=== PATIENT | female | born 1975 | race Caucasian/White ===

== ENCOUNTER 2018-09-18 03:31 | Emergency (ER) | payer SELFPAY ==
[~2018-09-18] VITALS: Ht 167.6 cm; Wt 100.2 kg
--- OUTSIDE RECORDS SUMMARY | 2018-09-18 03:39 | XMS REPORT ---
Author Author GOPAL URENA [facility] Address [address] [place] [address] Care Team Providers Care Weaving Inspector Name Role Phone AYANNADOMINGOAN Unavailable PROBLEMS Type Condition ICD9-CM Code [id number] Code Onset Dates Condition Status SNOMED Code Problem Uncontrolled type 2 diabetes mellitus without complication, without long- term current use of insulin E11.65 Active 423457778 Problem Other chronic pain G89.29 Active 29541027 Problem Neuropathy G62.9 Active 644781792 Problem Mood disorder F39 Active 67500164 Problem Hypertension, benign I10 Active 13195633 Problem Controlled type 2 diabetes mellitus without complication, without long- term current use of insulin E11.9 Active 646502794 Problem Mixed hyperlipidemia E78.2 Active 333353484 ALLERGIES No Information ENCOUNTERS Encounter Location Date Diagnosis [place] [address] [place] [id number] [place] [address] Mar, [facility] [id number] [place] [address] Jan, [facility] [id number] [place] [address] Jan, [facility] [id number] [place] [address] Dec, [facility] [id number] [place] [address] Dec, Controlled type 2 diabetes mellitus without complication, without long-term current use of insulin E11.9 ; Foot pain, left M79.672 ; Other chronic pain G89.29 and Pain in right shoulder M25.511 [facility] [id number] [place] [address] 15 Dec, 2017 Foot pain, left M79.672 and Foot pain, right M79.671 [place] [address] [address] [id number] [place] [address] Dec, Foot pain, left M79.672 and Foot pain, right M79.671 [place] [address] [place] [id number] [place] [address] Nov, Hypertension, benign I10 ; Uncontrolled type 2 diabetes mellitus without complication, without long-term current use of insulin E11.65 ; Neuropathy G62.9 ; Tobacco abuse Z72.0 and Tobacco abuse counseling Z71.6 [place] [address] [address] [id number] [place] [address] Oct, Other chronic pain G89.29 ; Pain in left ankle and joints of left foot M25.572 ; Pain in right ankle and joints of right foot M25.571 and Controlled type 2 diabetes mellitus without complication, without long-term current use of insulin E11.9 [place] [address] [address] [id number] [place] [address] Aug, Foot pain, right M79.671 [place] [address] [id number] [place] [address] Aug, Foot pain, right M79.671 ; Controlled type 2 diabetes mellitus without complication, without long-term current use of insulin E11.9 and Neuropathy G62.9 [place] [address] [address] [id number] [place] [address] July, Uncontrolled type 2 diabetes mellitus without complication, without long-term current use of insulin E11.65 and Hypertension, benign I10 [place] [address] [place] [address] July, [place] [address] [place] [id number] [place] [address] May, Uncontrolled type 2 diabetes mellitus without complication, without long-term current use of insulin E11.65 ; Hypertension, benign I10 and Mixed hyperlipidemia E78.2 [place] [address] [place] [address] [id number] [place] [address] 13 Apr, 2017 [facility] [address] [facility] [id number] [address] Apr, Mood disorder F39 ; Uncontrolled type 2 diabetes mellitus without complication, without long-term current use of insulin E11.65 and Hypertension, benign I10 [facility] [address] [facility] [id number] [address] Mar, IMMUNIZATIONS No Known Immunizations SOCIAL HISTORY Never Assessed REASON FOR VISIT PT f/u PLAN OF CARE Activity Details Follow Up 1 Week Reason:F/U PT VITAL SIGNS MEDICATIONS Unknown Medications RESULTS No Results PROCEDURES Procedure Date Ordered Result Body Site THERAPEUTIC EXERCISES Dec 25, 2017 INSTRUCTIONS MEDICATIONS ADMINISTERED No Known Medications MEDICAL (GENERAL) HISTORY Type Description Date Medical History hypertension Medical History type II diabetes Medical History degenerative joint disease Medical History high cholestorol Surgical History bilateral tubal ligation (BTL) 1995 Surgical History Pin and Plates in right ankle 1998 Hospitalization History kidney infection 1989
--- OUTSIDE RECORDS SUMMARY | 2018-09-18 03:39 | XMS REPORT ---
Author Author JAME AGUILAR Organization [facility] Address [address] [place] [address] Care Team Providers Care Grading Clerk Name Role Phone JAME AGUILAR Unavailable PROBLEMS Type Condition ICD9-CM Code [id number] Code Onset Dates Condition Status SNOMED Code Problem Uncontrolled type 2 diabetes mellitus without complication, without long- term current use of insulin E11.65 Active 609368115 Problem Other chronic pain G89.29 Active 52804234 Problem Neuropathy G62.9 Active 937197410 Problem Mood disorder F39 Active 40729248 Problem Hypertension, benign I10 Active 97689483 Problem Controlled type 2 diabetes mellitus without complication, without long- term current use of insulin E11.9 Active 677966525 Problem Mixed hyperlipidemia E78.2 Active 260675684 ALLERGIES Substance Reaction Event Type Date Status Lorcet itching Drug Allergy Dec, Active ENCOUNTERS Encounter Location Date Diagnosis [place] [id number] [place] [id number] [place] [address] Mar, [facility] [id number] [place] [address] Jan, [facility] [address] [place] [address] Jan, [facility] [id number] [place] [address] Jan, [facility] [id number] [place] [address] Dec, Other chronic pain G89.29 and Pain in right shoulder M25.511 [facility] [id number] [place] [address] Dec, Controlled type 2 diabetes mellitus without complication, without long-term current use of insulin E11.9 ; Foot pain, left M79.672 ; Other chronic pain G89.29 and Pain in right shoulder M25.511 [place] [address] [id number] [place] [address] Dec, Foot pain, left M79.672 and Foot pain, right M79.671 [place] [address] [id number] [place] [address] Dec, Foot pain, left M79.672 and Foot pain, right M79.671 [place] [id number] [place] [address] Nov, Hypertension, benign I10 ; Uncontrolled type 2 diabetes mellitus without complication, without long-term current use of insulin E11.65 ; Neuropathy G62.9 ; Tobacco abuse Z72.0 and Tobacco abuse counseling Z71.6 [place] [address] [address] Oct, Other chronic pain G89.29 ; Pain in left ankle and joints of left foot M25.572 ; Pain in right ankle and joints of right foot M25.571 and Controlled type 2 diabetes mellitus without complication, without long-term current use of insulin E11.9 [place] [id number] [place] [address] Aug, Foot pain, right M79.671 [place] [id number] [place] [address] Aug, Foot pain, right M79.671 ; Controlled type 2 diabetes mellitus without complication, without long-term current use of insulin E11.9 and Neuropathy G62.9 [place] [id number] [place] [address] July, Uncontrolled type 2 diabetes mellitus without complication, without long-term current use of insulin E11.65 and Hypertension, benign I10 [place] [id number] [place] [address] July, [place] [address] [place] [address] May, Uncontrolled type 2 diabetes mellitus without complication, without long-term current use of insulin E11.65 ; Hypertension, benign I10 and Mixed hyperlipidemia E78.2 [facility] [address] [facility] [id number] [place] [address] Apr, [facility] [address] [facility] [id number], [place] [address] Apr, Mood disorder F39 ; Uncontrolled type 2 diabetes mellitus without complication, without long-term current use of insulin E11.65 and Hypertension, benign I10 [facility] [address] [facility] [id number], [place] [address] Mar, IMMUNIZATIONS No Known Immunizations SOCIAL HISTORY Never Assessed REASON FOR VISIT Rt Shoulder Injection, xray said no breaks or fx just abnormal. CBrumbackRN PLAN OF CARE Activity Details Future/Pending Procedure JOINT INJECTION-LARGE JOINT VITAL SIGNS Height 66.5 in 2018-01-09 Weight 229.7 lbs 2018-01-09 Temperature 98.0 degrees Fahrenheit 2018-01-09 Heart Rate 115 bpm 2018-01-09 Respiratory Rate 18 2018-01-09 BMI 36.52 kg/m2 2018-01-09 Blood pressure systolic 100 mmHg 2018-01-09 Blood pressure diastolic 72 mmHg 2018-01-09 MEDICATIONS Medication Instructions Dosage Frequency Start Date End Date Duration Status Simvastatin 20 mg Orally Once a day 1 tablet in the evening 24h 30 Active Neurontin 300 MG Orally Three times a day 1 capsule 8h 20 Aug, 2017 30 day(s) Active Aleve 220 MG Orally every 12 hrs 1 tablet with food or milk as needed 12h Not-Taking Metformin HCl 500 mg Orally Twice a day 2 tablets 12h 12 Apr, 2017 30 day(s) Active Lisinopril-Hydrochlorothiazide 20-25 MG Orally Once a day 1 tablet 24h July, 30 day(s) Active Diclofenac Sodium 75 MG Orally Twice a day 1 tablet with food or milk 12h 24 Dec, 2017 Mar, 30 day(s) Active GlipiZIDE 10 mg Orally 2 times a day 2 tablets 12h Oct, 30 day(s) Active Amitriptyline HCl 50 mg Orally Once a day. voucher 1st fill 1 tablet 30 Active Citalopram Hydrobromide 20 mg Orally Once a day, voucher 1st fill 1 tablet 30 Active RESULTS No Results PROCEDURES Procedure Date Ordered Result Body Site DRAIN/INJECT, JOINT/BURSA Jan 09, 2018 INSTRUCTIONS MEDICATIONS ADMINISTERED No Known Medications MEDICAL (GENERAL) HISTORY Type Description Date Medical History hypertension Medical History type II diabetes Medical History degenerative joint disease Medical History high cholestorol Surgical History bilateral tubal ligation (BTL) 1995 Surgical History Pin and Plates in right ankle 1998 Hospitalization History kidney infection 1989
--- OUTSIDE RECORDS SUMMARY | 2018-09-18 03:39 | XMS REPORT ---
Author Author GOPAL URENA [facility] Address [address] [place] [address] Care Team Providers Care Draw String Knotter Name Role Phone AYANNADOMINGOAN Unavailable PROBLEMS Type Condition ICD9-CM Code LWN89-PI Code Onset Dates Condition Status SNOMED Code Problem Uncontrolled type 2 diabetes mellitus without complication, without long- term current use of insulin E11.65 Active 227469998 Problem Other chronic pain G89.29 Active 82420008 Problem Neuropathy G62.9 Active 960860208 Problem Mood disorder F39 Active 14145242 Problem Hypertension, benign I10 Active 48065295 Problem Controlled type 2 diabetes mellitus without complication, without long- term current use of insulin E11.9 Active 911877729 Problem Mixed hyperlipidemia E78.2 Active 403546630 ALLERGIES No Information ENCOUNTERS Encounter Location Date Diagnosis [place] [address] [place] [address] [id number] [place] [address] Mar, [facility] [address] [id number] [place] [address] Jan, [facility] [id number] [place] [address] Jan, [facility] [id number] [place] [address] Dec, [facility] [id number] [place] [address] Dec, Controlled type 2 diabetes mellitus without complication, without long-term current use of insulin E11.9 ; Foot pain, left M79.672 ; Other chronic pain G89.29 and Pain in right shoulder M25.511 [facility] [id number] [place] [address] 15 Dec, 2017 Foot pain, left M79.672 and Foot pain, right M79.671 [place] [id number] [place] [address] Dec, Foot pain, left M79.672 and Foot pain, right M79.671 [place] [id number] [place] [address] Nov, Hypertension, benign I10 ; Uncontrolled type 2 diabetes mellitus without complication, without long-term current use of insulin E11.65 ; Neuropathy G62.9 ; Tobacco abuse Z72.0 and Tobacco abuse counseling Z71.6 [place] [address] [id number] [place] [address] Oct, Other chronic pain G89.29 ; Pain in left ankle and joints of left foot M25.572 ; Pain in right ankle and joints of right foot M25.571 and Controlled type 2 diabetes mellitus without complication, without long-term current use of insulin E11.9 [place] [id number] [place] [address] Aug, Foot pain, right M79.671 [place] [address] [id number] [place] [address] Aug, Foot pain, right M79.671 ; Controlled type 2 diabetes mellitus without complication, without long-term current use of insulin E11.9 and Neuropathy G62.9 [place] [id number] [place] [address] July, Uncontrolled type 2 diabetes mellitus without complication, without long-term current use of insulin E11.65 and Hypertension, benign I10 [place] [address] [place] [address] July, [place] [address] [id number] [place] [address] May, Uncontrolled type 2 diabetes mellitus without complication, without long-term current use of insulin E11.65 ; Hypertension, benign I10 and Mixed hyperlipidemia E78.2 [place] [address] [place] [address] [id number] [address] 13 Apr, 2017 [facility] [address] [facility] [id number], [place] [address] Apr, Mood disorder F39 ; Uncontrolled type 2 diabetes mellitus without complication, without long-term current use of insulin E11.65 and Hypertension, benign I10 [facility] WALK IN [facility] [address] [facility] [id number], [place] [address] Mar, IMMUNIZATIONS No Known Immunizations SOCIAL HISTORY Never Assessed REASON FOR VISIT PT Evaluation PLAN OF CARE Activity Details Follow Up 1 Week Reason:F/U PT VITAL SIGNS MEDICATIONS Unknown Medications RESULTS No Results PROCEDURES Procedure Date Ordered Result Body Site PT EVAL LOW COMPLEX 20 MIN Dec 18, 2017 THERAPEUTIC EXERCISES Dec 18, 2017 INSTRUCTIONS MEDICATIONS ADMINISTERED No Known Medications MEDICAL (GENERAL) HISTORY Type Description Date Medical History hypertension Medical History type II diabetes Medical History degenerative joint disease Medical History high cholestorol Surgical History bilateral tubal ligation (BTL) 1995 Surgical History Pin and Plates in right ankle 1998 Hospitalization History kidney infection 1989
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
--- OUTSIDE RECORDS SUMMARY | 2018-09-18 03:39 | XMS REPORT ---
Author Author JAME AGUILAR Organization [facility] Address [address] [place] [address] Care Team Providers Care Spiral Winder Name Role Phone JAME AGUILAR Unavailable PROBLEMS Type Condition ICD9-CM Code GUP61-CX Code Onset Dates Condition Status SNOMED Code Problem Uncontrolled type 2 diabetes mellitus without complication, without long- term current use of insulin E11.65 Active 039034082 Problem Pain in right shoulder M25.511 Active [id number] Problem Neuropathy G62.9 Active 282688526 Problem Mood disorder F39 Active 90823662 Problem Hypertension, benign I10 Active 98362682 Problem Controlled type 2 diabetes mellitus without complication, without long- term current use of insulin E11.9 Active 505306304 Problem Mixed hyperlipidemia E78.2 Active 568602652 ALLERGIES Substance Reaction Event Type Date Status Lorcet itching Drug Allergy Jan, Active ENCOUNTERS Encounter Location Date Diagnosis [place] [address] [address] Mar, [facility] [address] [place] [id number] [place] [address] Feb, [place] [address] [place] [id number] [place] [address] Jan, Uncontrolled type 2 diabetes mellitus without complication, without long-term current use of insulin E11.65 ; Other chronic pain G89.29 ; Pain in right shoulder M25.511 and Skin fissure R23.4 [place] [address] [address] Jan, Foot pain, left M79.672 and Foot pain, right M79.671 [place] [address] [place] [id number] [place] [address] Jan, [place] [address] [place] [id number] [place] [address] Dec, Other chronic pain G89.29 and Pain in right shoulder M25.511 [place] [address] [place] [id number] [place] [address] Dec, Controlled type 2 diabetes mellitus without complication, without long-term current use of insulin E11.9 ; Foot pain, left M79.672 ; Other chronic pain G89.29 and Pain in right shoulder M25.511 [place] [address] [place] [id number] [place] [address] Dec, Foot pain, left M79.672 and Foot pain, right M79.671 [place] [address] [address] Dec, Foot pain, left M79.672 and Foot pain, right M79.671 [place] [address] [place] [id number] [place] [address] Nov, Hypertension, benign I10 ; Uncontrolled type 2 diabetes mellitus without complication, without long-term current use of insulin E11.65 ; Neuropathy G62.9 ; Tobacco abuse Z72.0 and Tobacco abuse counseling Z71.6 [place] [address] [place] [id number] [place] [address] Oct, Other chronic pain G89.29 ; Pain in left ankle and joints of left foot M25.572 ; Pain in right ankle and joints of right foot M25.571 and Controlled type 2 diabetes mellitus without complication, without long-term current use of insulin E11.9 [place] [address] [place] [id number] [place] [address] Aug, Foot pain, right M79.671 [place] [address] [place] [id number] [place] [address] Aug, Foot pain, right M79.671 ; Controlled type 2 diabetes mellitus without complication, without long-term current use of insulin E11.9 and Neuropathy G62.9 [place] [address], [place] [address] July, Uncontrolled type 2 diabetes mellitus without complication, without long-term current use of insulin E11.65 and Hypertension, benign I10 [facility] [address], [place] [address] July, [facility] [address] [place] [address] [id number] [place] [address] May, Uncontrolled type 2 diabetes mellitus without complication, without long-term current use of insulin E11.65 ; Hypertension, benign I10 and Mixed hyperlipidemia E78.2 [place] [address] [place] [id number] [place] [address] 13 Apr, 2017 [place] [address] [place] [id number] [place] [address] 12 Apr, 2017 Mood disorder F39 ; Uncontrolled type 2 diabetes mellitus without complication, without long-term current use of insulin E11.65 and Hypertension, benign I10 [facility] [address], [place] [address] Mar, IMMUNIZATIONS No Known Immunizations SOCIAL HISTORY Never Assessed REASON FOR VISIT Diabetes- Grady [facility] PLAN OF CARE Activity Details Follow Up 2 Months Reason:dm2 VITAL SIGNS Height 66.5 in 2018-02-07 Weight 226.0 lbs 2018-02-07 Temperature 98.0 degrees Fahrenheit 2018-02-07 Heart Rate 100 bpm 2018-02-07 Respiratory Rate 18 2018-02-07 Oximetry 98 % 2018-02-07 BMI 35.93 kg/m2 2018-02-07 Blood pressure systolic 130 mmHg 2018-02-07 Blood pressure diastolic 72 mmHg 2018-02-07 MEDICATIONS Medication Instructions Dosage Frequency Start Date End Date Duration Status Metformin HCl 500 mg Orally Twice a day 2 tablets 12h 12 Apr, 2017 30 day(s) Active Simvastatin 20 mg Orally Once a day 1 tablet in the evening 24h 30 Active Citalopram Hydrobromide 20 mg Orally Once a day, voucher 1st fill 1 tablet 30 Active Lisinopril-Hydrochlorothiazide 20-25 MG Orally Once a day 1 tablet 24h 30 Active Cyclobenzaprine HCl 10 MG Orally 2 times a day 1 tablet as needed 12h Jan, Active Amitriptyline HCl 50 mg Orally Once a day. voucher 1st fill 1 tablet 30 Active Diclofenac Sodium 75 MG Orally Twice a day 1 tablet with food or milk 12h Dec, Mar, 30 day(s) Active GlipiZIDE 10 mg Orally 2 times a day 2 tablets 12h Oct, 30 day(s) Active Mupirocin Calcium 2 % Externally Twice a day 1 application 12h Jan, 10 day(s) Active Aleve 220 MG Orally every 12 hrs 1 tablet with food or milk as needed 12h Not-Taking Neurontin 300 MG Orally Three times a day 1 capsule 8h 30 Active RESULTS No Results PROCEDURES No Known [...]
--- OUTSIDE RECORDS SUMMARY | 2018-09-18 03:39 | XMS REPORT ---
Author Author GOPAL URENA [facility] Address [address] [place] [address] Care Team Providers Care Factory Laborer Name Role Phone AYANNADOMINGOAN Unavailable PROBLEMS Type Condition ICD9-CM Code PHY26-UA Code Onset Dates Condition Status SNOMED Code Problem Uncontrolled type 2 diabetes mellitus without complication, without long- term current use of insulin E11.65 Active 763675086 Problem Other chronic pain G89.29 Active 36984953 Problem Neuropathy G62.9 Active 945659707 Problem Mood disorder F39 Active 62490734 Problem Hypertension, benign I10 Active 52112544 Problem Controlled type 2 diabetes mellitus without complication, without long- term current use of insulin E11.9 Active 905967761 Problem Mixed hyperlipidemia E78.2 Active 387101999 ALLERGIES No Information ENCOUNTERS Encounter Location Date Diagnosis [place] [address] [address] Mar, [place] [address] [address] Jan, [place] [address] [address] Jan, Foot pain, left M79.672 and Foot pain, right M79.671 [facility] [address] [place] [id number] [place] [address] Jan, [facility] [address] [address] Dec, Other chronic pain G89.29 and Pain in right shoulder M25.511 [place] [address] [place] [id number] [place] [address] Dec, Controlled type 2 diabetes mellitus without complication, without long-term current use of insulin E11.9 ; Foot pain, left M79.672 ; Other chronic pain G89.29 and Pain in right shoulder M25.511 [place] [address] [address] Dec, Foot pain, left M79.672 and Foot pain, right M79.671 [place] [address] [address] Dec, Foot pain, left M79.672 and Foot pain, right M79.671 [place] [address] [address] Nov, Hypertension, benign I10 ; Uncontrolled type 2 diabetes mellitus without complication, without long-term current use of insulin E11.65 ; Neuropathy G62.9 ; Tobacco abuse Z72.0 and Tobacco abuse counseling Z71.6 [place] [address] [address] Oct, Other chronic pain G89.29 ; Pain in left ankle and joints of left foot M25.572 ; Pain in right ankle and joints of right foot M25.571 and Controlled type 2 diabetes mellitus without complication, without long-term current use of insulin E11.9 [place] [address] [address] Aug, Foot pain, right M79.671 [place] [address] [address] Aug, Foot pain, right M79.671 ; Controlled type 2 diabetes mellitus without complication, without long-term current use of insulin E11.9 and Neuropathy G62.9 [place] [address] [address] July, Uncontrolled type 2 diabetes mellitus without complication, without long-term current use of insulin E11.65 and Hypertension, benign I10 [place] [address] [address] July, [place] [address] [facility] [id number] [place] [address] May, Uncontrolled type 2 diabetes mellitus without complication, without long-term current use of insulin E11.65 ; Hypertension, benign I10 and Mixed hyperlipidemia E78.2 [facility] [address] [facility] [id number] [place] [address] Apr, [facility] [address] [facility] [id number], [place] [address] Apr, Mood disorder F39 ; Uncontrolled type 2 diabetes mellitus without complication, without long-term current use of insulin E11.65 and Hypertension, benign I10 [facility] [address] [facility] [id number], [place] [address] Mar, IMMUNIZATIONS No Known Immunizations SOCIAL HISTORY Never Assessed REASON FOR VISIT PLAN OF CARE Activity Details Follow Up 1 Week Reason:F/U PT VITAL SIGNS MEDICATIONS Unknown Medications RESULTS No Results PROCEDURES Procedure Date Ordered Result Body Site THERAPEUTIC EXERCISES Jan 22, 2018 INSTRUCTIONS MEDICATIONS ADMINISTERED No Known Medications MEDICAL (GENERAL) HISTORY Type Description Date Medical History hypertension Medical History type II diabetes Medical History degenerative joint disease Medical History high cholestorol Surgical History bilateral tubal ligation (BTL) 1995 Surgical History Pin and Plates in right ankle 1998 Hospitalization History kidney infection 1989
--- OUTSIDE RECORDS SUMMARY | 2018-09-18 03:39 | XMS REPORT ---
Author Author GOPAL URENA Organization [facility] Address [address] [place] [address] Care Team Providers Care Crew Leader Gluing Name Role Phone AYANNADOMINGOAN Unavailable PROBLEMS Type Condition ICD9-CM Code HRM48-BR Code Onset Dates Condition Status SNOMED Code Problem Uncontrolled type 2 diabetes mellitus without complication, without long- term current use of insulin E11.65 Active 698309226 Problem Hypertension, benign I10 Active 59028267 Problem Pain in right shoulder M25.511 Active 43891603790832836 Problem Other chronic pain G89.29 Active 47593151 Problem Mood disorder F39 Active 21485528 Problem Mixed hyperlipidemia E78.2 Active 861519048 Problem Controlled type 2 diabetes mellitus without complication, without long- term current use of insulin E11.9 Active 705352171 Problem Neuropathy G62.9 Active 142971207 ALLERGIES No Information ENCOUNTERS Encounter Location Date Diagnosis [facility] [address] [address] May, Chronic diarrhea K52.9 [facility] [address] [address] 08 May, 2018 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 [facility] [address] [address] 2018 Low back pain M54.5 ; Other chronic pain G89.29 ; Chronic diarrhea K52.9 ; Hypertension, benign I10 ; Mood disorder F39 ; Uncontrolled type 2 diabetes mellitus without complication, without long-term current use of insulin E11.65 and Mixed hyperlipidemia E78.2 [facility] [address] [place] [id number] [place] [address] Mar, Pain in right shoulder M25.511 [facility] [address] [address] Mar, Foot pain, left M79.672 and Foot pain, right M79.671 [place] [address] [address] Mar, 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 and Posterior tibial tendinitis of right lower extremity M76.821 [place] [address] [address] Mar, [place] [address] [address] Feb, Foot pain, left M79.672 and Foot pain, right M79.671 [place] [address] [place] [id number] [place] [address] Jan, Uncontrolled type 2 diabetes mellitus without complication, without long-term current use of insulin E11.65 ; Other chronic pain G89.29 ; Pain in right shoulder M25.511 and Skin fissure R23.4 [place] [address] [place] [id number] [place] [address] Jan, Foot pain, left M79.672 and Foot pain, right M79.671 [place] [address] [place] [id number] [place] [address] Jan, Foot pain, left M79.672 and Foot pain, right M79.671 [place] [address] [place] [id number] [place] [address] Dec, Other chronic pain G89.29 and Pain in right shoulder M25.511 [place] [address] [address] Dec, Controlled type 2 diabetes mellitus without complication, without long-term current use of insulin E11.9 ; Foot pain, left M79.672 ; Other chronic pain G89.29 and Pain in right shoulder M25.511 [place] [address] [address] Dec, Foot pain, left M79.672 and Foot pain, right M79.671 [place] [address] [address] Dec, Foot pain, left M79.672 and Foot pain, right M79.671 [place] [address] [address] Nov, Hypertension, benign I10 ; Uncontrolled type 2 diabetes mellitus without complication, without long-term current use of insulin E11.65 ; Neuropathy G62.9 ; Tobacco abuse Z72.0 and Tobacco abuse counseling Z71.6 [place] [address] [address] Oct, Other chronic pain G89.29 ; Pain in left ankle and joints of left foot M25.572 ; Pain in right ankle and joints of right foot M25.571 and Controlled type 2 diabetes mellitus without complication, without long-term current use of insulin E11.9 [place] [address] [address] Aug, Foot pain, right M79.671 [place] [address] [address] Aug, Foot pain, right M79.671 ; Controlled type 2 diabetes mellitus without complication, without long-term current use of insulin E11.9 and Neuropathy G62.9 [place] [address] [place] [id number] [place] [address] July, Uncontrolled type 2 diabetes mellitus without complication, without long-term current use of insulin E11.65 and Hypertension, benign I10 [place] [address] [address] July, [place] [address] [address] May, Uncontrolled type 2 diabetes mellitus without complication, without long-term current use of insulin E11.65 ; Hypertension, benign I10 and Mixed hyperlipidemia E78.2 [facility] [address] [facility] [id number], [place] [address] Apr, [facility] [address] [facility] [id number], [place] [address] 12 Apr, 2017 Mood disorder F39 ; Uncontrolled type 2 diabetes mellitus without complication, without long-term current use of insulin E11.65 and Hypertension, benign I10 [facility] [address] [facility] [id number], [place] [address] Mar, IMMUNIZATIONS No Known Immunizations SOCIAL HISTORY Never Assessed REASON FOR VISIT PLAN OF CARE Activity Details Follow Up 2 Weeks Reason:F/U PT VITAL SIGNS MEDICATIONS Unknown Medications RESULTS No Results PROCEDURES Procedure Date Ordered Result Body Site THERAPEUTIC EXERCISES Apr 09, 2018 INSTRUCTIONS MEDICATIONS ADMINISTERED No Known Medications MEDICAL (GENERAL) HISTORY Type Description Date Medical History hypertension Medical History type II diabetes Medical History degenerative joint disease Medical History high cholestorol Surgical History bilateral tubal ligation (BTL) 1995 Surgical History Pin and Plates in right ankle 1998 Hospitalization History kidney infection 1989
[2018-09-18] MEDS ORDERED: NS IV 1000 ML 1,000 ML IV ONE (03:40)
--- OUTSIDE RECORDS SUMMARY | 2018-09-18 03:40 | XMS REPORT ---
Author Author JAME AGUILAR Organization [facility] Address [address] [place] [address] Care Team Providers Care General Office Worker Name Role Phone JAME AGUILAR Unavailable PROBLEMS Type Condition ICD9-CM Code GTY21-OG Code Onset Dates Condition Status SNOMED Code Problem Uncontrolled type 2 diabetes mellitus without complication, without long- term current use of insulin E11.65 Active 349891631 Problem Other chronic pain G89.29 Active 08074415 Problem Neuropathy G62.9 Active 669507236 Problem Mood disorder F39 Active 80588855 Problem Hypertension, benign I10 Active 41726474 Problem Controlled type 2 diabetes mellitus without complication, without long- term current use of insulin E11.9 Active 210875477 Problem Mixed hyperlipidemia E78.2 Active 084122763 ALLERGIES Substance Reaction Event Type Date Status Lorcet itching Drug Allergy Oct, Active ENCOUNTERS Encounter Location Date Diagnosis [place] [address] [place] [address] Dec, [place] [address] [place] [id number] [place] [address] Nov, [place] [address] [place] [address] Oct, Other chronic pain G89.29 ; Pain in left ankle and joints of left foot M25.572 ; Pain in right ankle and joints of right foot M25.571 and Controlled type 2 diabetes mellitus without complication, without long-term current use of insulin E11.9 [facility] [address] [place] [address] Aug, Foot pain, right M79.671 [facility] [address] [place] [id number] [place] [address] Aug, Foot pain, right M79.671 ; Controlled type 2 diabetes mellitus without complication, without long-term current use of insulin E11.9 and Neuropathy G62.9 [place] [address] [place] [id number] July, Uncontrolled type 2 diabetes mellitus without complication, without long-term current use of insulin E11.65 and Hypertension, benign I10 [facility] [address] [address] July, [place] [address] [address] May, Uncontrolled type 2 diabetes mellitus without complication, without long-term current use of insulin E11.65 ; Hypertension, benign I10 and Mixed hyperlipidemia E78.2 [place] [address] [address] Apr, [place] [address] [place] [address] Apr, Mood disorder F39 ; Uncontrolled type 2 diabetes mellitus without complication, without long-term current use of insulin E11.65 and Hypertension, benign I10 [facility] [address] [place] [id number] Mar, IMMUNIZATIONS No Known Immunizations SOCIAL HISTORY Never Assessed REASON FOR VISIT Diabetes CBrumbackRN, Reports having to wear ankle braces or ankles feel like th ey are going to break. PLAN OF CARE Activity Details Follow Up 4 Weeks Reason:dm2 uncontrolled VITAL SIGNS Height 66.5 in 2017-11-01 Weight 228.0 lbs 2017-11-01 Temperature 98.7 degrees Fahrenheit 2017-11-01 Heart Rate 96 bpm 2017-11-01 Respiratory Rate 18 2017-11-01 BMI 36.24 kg/m2 2017-11-01 Blood pressure systolic 106 mmHg 2017-11-01 Blood pressure diastolic 72 mmHg 2017-11-01 MEDICATIONS Medication Instructions Dosage Frequency Start Date End Date Duration Status Lisinopril-Hydrochlorothiazide 20-25 MG Orally Once a day 1 tablet 24h July, 30 day(s) Active Simvastatin 20 mg Orally Once a day 1 tablet in the evening 24h 30 Active GlipiZIDE 10 mg Orally 2 times a day 1 tablet 12h Oct, 30 day(s) Active Metformin HCl 500 mg Orally Twice a day 2 tablets 12h Apr, 30 day(s) Active Amitriptyline HCl 50 mg Orally Once a day. voucher 1st fill 1 tablet 30 Active Citalopram Hydrobromide 20 mg Orally Once a day, voucher 1st fill 1 tablet 30 Active Aleve 220 MG Orally every 12 hrs 1 tablet with food or milk as needed 12h Active Neurontin 300 MG Orally Three times a day 1 capsule 8h 20 Aug, 2017 30 day(s) Active RESULTS Name Result Date Reference Range A1C (IN HOUSE) 2017-11-01 A1C IN HOUSE 8.3 4.3 - 5.6 % Previous A1c 8.3 Lot [id number] Exp date 05/2019 Xray : Ankle, Left 2 views (IN HOUSE) 2017-11-01 Xray : Ankle, Right 2 views (IN HOUSE) 2017-11-01 PROCEDURES Procedure Date Ordered Result Body Site X-RAY EXAM OF ANKLE Nov 01, 2017 GLYCATED HEMOGLOBIN TEST Nov 01, 2017 INSTRUCTIONS MEDICATIONS ADMINISTERED No Known Medications MEDICAL (GENERAL) HISTORY Type Description Date Medical History hypertension Medical History type II diabetes Medical History degenerative joint disease Medical History high cholestorol Surgical History bilateral tubal ligation (BTL) 1995 Surgical History Pin and Plates in right ankle 1998 Hospitalization History kidney infection 1989
--- OUTSIDE RECORDS SUMMARY | 2018-09-18 03:40 | XMS REPORT ---
Author Author JAME AGUILAR Organization [facility] Address [address] [place] [address] Care Team Providers Care Multi Care Technician Name Role Phone JAME AGUILAR Unavailable PROBLEMS Type Condition ICD9-CM Code XKQ86-DS Code Onset Dates Condition Status SNOMED Code Problem Neuropathy G62.9 Active 064725864 Problem Controlled type 2 diabetes mellitus without complication, without long- term current use of insulin E11.9 Active 955896480 Problem Hypertension, benign I10 Active 77720770 Problem Uncontrolled type 2 diabetes mellitus without complication, without long- term current use of insulin E11.65 Active 007684985 Problem Mixed hyperlipidemia E78.2 Active 362660668 Problem Mood disorder F39 Active 10095764 ALLERGIES No Information ENCOUNTERS Encounter Location Date Diagnosis [place] [address] [place] [id number] [place] [address] Oct, [place] [address] [address] Aug, Foot pain, right M79.671 [place] [address] [place] [id number] [place] [address] Aug, Foot pain, right M79.671 ; Controlled type 2 diabetes mellitus without complication, without long-term current use of insulin E11.9 and Neuropathy G62.9 [facility] [address] [place] [id number] [place] [address] July, Uncontrolled type 2 diabetes mellitus without complication, without long-term current use of insulin E11.65 and Hypertension, benign I10 [facility] [address] [place] [id number] [place] [address] July, [place] [address] [place] [id number] [place] [address] May, Uncontrolled type 2 diabetes mellitus without complication, without long-term current use of insulin E11.65 ; Hypertension, benign I10 and Mixed hyperlipidemia E78.2 [facility] [address] [facility] [id number] [address] Apr, [facility] [address] [facility] [id number], [place] [address] Apr, Mood disorder F39 ; Uncontrolled type 2 diabetes mellitus without complication, without long-term current use of insulin E11.65 and Hypertension, benign I10 [facility] [address] [facility] [id number], [place] [address] Mar, IMMUNIZATIONS No Known Immunizations SOCIAL HISTORY Never Assessed REASON FOR VISIT Requests return call PLAN OF CARE VITAL SIGNS MEDICATIONS Unknown Medications RESULTS No Results PROCEDURES No Known procedures [...]
--- OUTSIDE RECORDS SUMMARY | 2018-09-18 03:40 | XMS REPORT ---
Author Author JAME AGUILAR Organization [facility] Address [address] [place] [address] Care Team Providers Care Business Services Assistant Name Role Phone JAME AGUILAR Unavailable PROBLEMS Type Condition ICD9-CM Code [id number] Code Onset Dates Condition Status SNOMED Code Problem Neuropathy G62.9 Active 537507699 Problem Controlled type 2 diabetes mellitus without complication, without long- term current use of insulin E11.9 Active 703885418 Problem Hypertension, benign I10 Active 22538628 Problem Uncontrolled type 2 diabetes mellitus without complication, without long- term current use of insulin E11.65 Active 572154753 Problem Mixed hyperlipidemia E78.2 Active 447349223 Problem Mood disorder F39 Active 97213704 ALLERGIES Substance Reaction Event Type Date Status Lorcet itching Drug Allergy May, Active ENCOUNTERS Encounter Location Date Diagnosis [place] [address] [place] [id number] [place] [address] Oct, [place] [address] [address] Aug, Foot pain, right M79.671 [facility] [address] [id number] [place] [address] Aug, Foot pain, right M79.671 ; Controlled type 2 diabetes mellitus without complication, without long-term current use of insulin E11.9 and Neuropathy G62.9 [facility] [address] [id number] [place] [address] July, Uncontrolled type 2 diabetes mellitus without complication, without long-term current use of insulin E11.65 and Hypertension, benign I10 [facility] [id number] [place] [phone] July, [facility] [id number] [place] [address] May, Uncontrolled type 2 diabetes mellitus without complication, without long-term current use of insulin E11.65 ; Hypertension, benign I10 and Mixed hyperlipidemia E78.2 [facility] [address] [facility] [id number] [place] [address] Apr, [facility] [address] [facility] [id number] [address] Apr, Mood disorder F39 ; Uncontrolled type 2 diabetes mellitus without complication, without long-term current use of insulin E11.65 and Hypertension, benign I10 [facility] WALK IN [facility] [address] [facility] [id number] [address] Mar, IMMUNIZATIONS No Known Immunizations SOCIAL HISTORY Never Assessed REASON FOR VISIT Diabetes recheck, MICRO-normal CBrumbackRn PLAN OF CARE Activity Details Follow Up 2 Months Reason:dm2 ooc VITAL SIGNS Height 66.5 in 2017-05-25 Weight 218.6 lbs 2017-05-25 Temperature 98.2 degrees Fahrenheit 2017-05-25 Heart Rate 88 bpm 2017-05-25 Respiratory Rate 18 2017-05-25 BMI 34.75 kg/m2 2017-05-25 Blood pressure systolic 112 mmHg 2017-05-25 Blood pressure diastolic 68 mmHg 2017-05-25 MEDICATIONS Medication Instructions Dosage Frequency Start Date End Date Duration Status Citalopram Hydrobromide 20 mg Orally Once a day, voucher 1st fill 1 tablet Apr, 30 day(s) Active Lisinopril 20 mg Orally Once a day, voucher 1st fill 1 tablet Apr, 30 day(s) Active Actos 30 MG Orally Once a day 1 tablet 24h May, 30 day(s) Active Amitriptyline HCl 50 mg Orally Once a day. voucher 1st fill 1 tablet Apr, 30 day(s) Active Simvastatin 20 mg Orally Once a day 1 tablet in the evening 24h Apr, 30 day(s) Active Metformin HCl 500 mg Orally Twice a day, voucher 1st fill 2 tablets Apr, 30 day(s) Active Aleve 220 MG Orally every 12 hrs 1 tablet with food or milk as needed 12h Active RESULTS Name Result Date Reference Range MICROALBUMIN, URINE (IN HOUSE) 2017-05-25 MICROALBUMIN normal Lot # [id number] Exp date 12/2017 Clarity clear Color yellow ALB 30 CRE 100 A:C (IN HOUSE) less than 30 Control Control Lot # Exp date PROCEDURES Procedure Date Ordered Result Body Site MICROALBUMIN, SEMIQUANT May 25, 2017 INSTRUCTIONS MEDICATIONS ADMINISTERED No Known Medications MEDICAL (GENERAL) HISTORY Type Description Date Medical History hypertension Medical History type II diabetes Medical History degenerative joint disease Medical History high cholestorol Surgical History bilateral tubal ligation (BTL) 1995 Surgical History Pin and Plates in right ankle 1998 Hospitalization History kidney infection 1989
--- OUTSIDE RECORDS SUMMARY | 2018-09-18 03:40 | XMS REPORT ---
Author Author JAME AGUILAR Organization [facility] Address [address] [place] [address] Care Team Providers Care Insulation Cupola Charger Name Role Phone JAME AGUILAR Unavailable PROBLEMS Type Condition ICD9-CM Code [id number] Code Onset Dates Condition Status SNOMED Code Problem Neuropathy G62.9 Active 147877330 Problem Controlled type 2 diabetes mellitus without complication, without long- term current use of insulin E11.9 Active 586871793 Problem Hypertension, benign I10 Active 24922283 Problem Uncontrolled type 2 diabetes mellitus without complication, without long- term current use of insulin E11.65 Active 641383952 Problem Mixed hyperlipidemia E78.2 Active 048374108 Problem Mood disorder F39 Active 57549361 ALLERGIES Substance Reaction Event Type Date Status Lorcet itching Drug Allergy Apr, Active ENCOUNTERS Encounter Location Date Diagnosis [place] [address] [place] [id number] [place] [address] Aug, Foot pain, right M79.671 [place] [id number] [place] [address] Aug, Foot pain, right M79.671 ; Controlled type 2 diabetes mellitus without complication, without long-term current use of insulin E11.9 and Neuropathy G62.9 [facility] [address] [place] [address] July, Uncontrolled type 2 diabetes mellitus without complication, without long-term current use of insulin E11.65 and Hypertension, benign I10 [place] [address] [place] [id number] [place] [address] July, [place] [id number] [place] [address] May, Uncontrolled type 2 diabetes mellitus without complication, without long-term current use of insulin E11.65 ; Hypertension, benign I10 and Mixed hyperlipidemia E78.2 [facility] [address] [facility] [id number] [place] [address] 13 Apr, 2017 [facility] [address] [facility] [id number] [place] [address] 12 Apr, 2017 Mood disorder F39 ; Uncontrolled type 2 diabetes mellitus without complication, without long-term current use of insulin E11.65 and Hypertension, benign I10 [facility] WALK IN [facility] [address] [facility] [id number] [place] [address] Mar, IMMUNIZATIONS No Known Immunizations SOCIAL HISTORY Never Assessed REASON FOR VISIT Establish Care, a few weeks ago PT felt as if she was going to pass out. She has been off all her medication for one to two years. PT was a pactient of Dr. Iraida green in [facility], PT is currently fasting PLAN OF CARE Activity Details Follow Up 4 Weeks Reason:dm2 uncontrolled VITAL SIGNS Height 66.5 in 2017-04-24 Weight 217.9 lbs 2017-04-24 Temperature 98.7 degrees Fahrenheit 2017-04-24 Heart Rate 84 bpm 2017-04-24 Respiratory Rate 20 2017-04-24 BMI 34.64 kg/m2 2017-04-24 Blood pressure systolic 128 mmHg 2017-04-24 Blood pressure diastolic 86 mmHg 2017-04-24 MEDICATIONS Medication Instructions Dosage Frequency Start Date End Date Duration Status Metformin HCl 500 mg Orally Twice a day, voucher 1st fill 1 tablet with meals Apr, 30 day(s) Active Lisinopril 20 mg Orally Once a day, voucher 1st fill 1 tablet Apr, 30 day(s) Active Citalopram Hydrobromide 20 mg Orally Once a day, voucher 1st fill 1 tablet Apr, 30 day(s) Active Amitriptyline HCl 50 mg Orally Once a day. voucher 1st fill 1 tablet Apr, 30 day(s) Active Aleve 220 MG Orally every 12 hrs 1 tablet with food or milk as needed 12h Active RESULTS No Results PROCEDURES Procedure Date Ordered Result Body Site COMPREHEN METABOLIC PANEL Apr 24, 2017 GLYCATED HEMOGLOBIN TEST Apr 24, 2017 COMPLETE CBC W/AUTO DIFF WBC Apr 24, 2017 ASSAY THYROID STIM HORMONE Apr 24, 2017 VENIPUNCT, ROUTINE* Apr 24, 2017 LIPID PANEL Apr 24, 2017 INSTRUCTIONS MEDICATIONS ADMINISTERED No Known Medications MEDICAL (GENERAL) HISTORY Type Description Date Medical History hypertension Medical History type II diabetes Medical History degenerative joint disease Medical History high cholestorol Surgical History bilateral tubal ligation (BTL) 1995 Surgical History Pin and Plates in right ankle 1998 Hospitalization History kidney infection 1989
--- OUTSIDE RECORDS SUMMARY | 2018-09-18 03:40 | XMS REPORT ---
Author Author JAME AGUILAR Organization [facility] Address [address] [place] [address] Care Team Providers Care Matrix Repairer Name Role Phone JAME AGUILAR Unavailable PROBLEMS Type Condition ICD9-CM Code FSN69-PY Code Onset Dates Condition Status SNOMED Code Problem Neuropathy G62.9 Active 233390807 Problem Controlled type 2 diabetes mellitus without complication, without long- term current use of insulin E11.9 Active 537539831 Problem Hypertension, benign I10 Active 66194782 Problem Uncontrolled type 2 diabetes mellitus without complication, without long- term current use of insulin E11.65 Active 653006915 Problem Mixed hyperlipidemia E78.2 Active 718045444 Problem Mood disorder F39 Active 36617544 ALLERGIES Substance Reaction Event Type Date Status Lorcet itching Drug Allergy July, Active ENCOUNTERS Encounter Location Date Diagnosis [place] [id number] [place] [phone] Oct, [place] [address] [address] Aug, Foot pain, right M79.671 [facility] [id number] [place] [address] Aug, Foot pain, right M79.671 ; Controlled type 2 diabetes mellitus without complication, without long-term current use of insulin E11.9 and Neuropathy G62.9 [facility] [address] [place] [id number] [place] [address] July, Uncontrolled type 2 diabetes mellitus without complication, without long-term current use of insulin E11.65 and Hypertension, benign I10 [facility] [address] [place] [id number] [place] [address] July, [facility] [id number] [place] [address] May, Uncontrolled type 2 diabetes mellitus without complication, without long-term current use of insulin E11.65 ; Hypertension, benign I10 and Mixed hyperlipidemia E78.2 [facility] [address] [facility] [id number] [place] [address] Apr, [facility] [address] [facility] [id number], [place] [address] Apr, Mood disorder F39 ; Uncontrolled type 2 diabetes mellitus without complication, without long-term current use of insulin E11.65 and Hypertension, benign I10 [facility] [address] [facility] [id number], [place] [address] Mar, IMMUNIZATIONS No Known Immunizations SOCIAL HISTORY Never Assessed REASON FOR VISIT Diabetes, Ankle Swelling - MPeters [place] PLAN OF CARE Activity Details Follow Up 4 Weeks Reason:edema VITAL SIGNS Height 66.5 in 2017-07-28 Weight 224.1 lbs 2017-07-28 Temperature 98.4 degrees Fahrenheit 2017-07-28 Heart Rate 88 bpm 2017-07-28 Respiratory Rate 20 2017-07-28 BMI 35.62 kg/m2 2017-07-28 Blood pressure systolic 118 mmHg 2017-07-28 Blood pressure diastolic 90 mmHg 2017-07-28 MEDICATIONS Medication Instructions Dosage Frequency Start Date End Date Duration Status Citalopram Hydrobromide 20 mg Orally Once a day, voucher 1st fill 1 tablet 30 Active Amitriptyline HCl 50 mg Orally Once a day. voucher 1st fill 1 tablet 30 Active Metformin HCl 500 mg Orally Twice a day, voucher 1st fill 2 tablets Apr, 30 day(s) Active Lisinopril-Hydrochlorothiazide 20-25 MG Orally Once a day 1 tablet 24h July, 30 day(s) Active Aleve 220 MG Orally every 12 hrs 1 tablet with food or milk as needed 12h Active Actos 30 MG Orally Once a day 1 tablet 24h May, 30 day(s) Active Simvastatin 20 mg Orally Once a day 1 tablet in the evening 24h 13 Apr, 2017 30 day(s) Active RESULTS Name Result Date Reference Range A1C (IN HOUSE) 2017-07-28 A1C IN HOUSE 8.3 4.3 - 5.6 % Previous A1c 10.9 Lot [id number] Exp date 05/2019 PROCEDURES Procedure Date Ordered Result Body Site GLYCATED HEMOGLOBIN TEST July 28, 2017 INSTRUCTIONS MEDICATIONS ADMINISTERED No Known Medications MEDICAL (GENERAL) HISTORY Type Description Date Medical History hypertension Medical History type II diabetes Medical History degenerative joint disease Medical History high cholestorol Surgical History bilateral tubal ligation (BTL) 1995 Surgical History Pin and Plates in right ankle 1998 Hospitalization History kidney infection 1989
--- OUTSIDE RECORDS SUMMARY | 2018-09-18 03:40 | XMS REPORT ---
Author Author JAME AGUILAR Organization [facility] Address [address] [place] [address] Care Team Providers Care Auto Washer Name Role Phone JAME AGUILAR Unavailable PROBLEMS Type Condition ICD9-CM Code [id number] Code Onset Dates Condition Status SNOMED Code Problem Uncontrolled type 2 diabetes mellitus without complication, without long- term current use of insulin E11.65 Active 907186637 Problem Other chronic pain G89.29 Active 53267429 Problem Neuropathy G62.9 Active 390457565 Problem Mood disorder F39 Active 54900073 Problem Hypertension, benign I10 Active 96104703 Problem Controlled type 2 diabetes mellitus without complication, without long- term current use of insulin E11.9 Active 242543535 Problem Mixed hyperlipidemia E78.2 Active 245775872 ALLERGIES Substance Reaction Event Type Date Status Lorcet itching Drug Allergy Dec, Active ENCOUNTERS Encounter Location Date Diagnosis [place] [id number] [place] [id number] [place] [address] Mar, [facility] [address] [id number] [place] [address] Jan, [place] [address] [place] [address] Jan, [facility] [id number] [place] [address] Dec, [facility] [address] [id number] [place] [address] Dec, Controlled type 2 diabetes mellitus without complication, without long-term current use of insulin E11.9 ; Foot pain, left M79.672 ; Other chronic pain G89.29 and Pain in right shoulder M25.511 [facility] [address] [id number] [place] [address] Dec, [place] [address] [address] [id number] [place] [address] Dec, [place] [address] [address] Nov, Hypertension, benign I10 ; Uncontrolled type 2 diabetes mellitus without complication, without long-term current use of insulin E11.65 ; Neuropathy G62.9 ; Tobacco abuse Z72.0 and Tobacco abuse counseling Z71.6 [place] [address] [place] [address] [id number] [place] [address] Oct, Other chronic pain G89.29 ; Pain in left ankle and joints of left foot M25.572 ; Pain in right ankle and joints of right foot M25.571 and Controlled type 2 diabetes mellitus without complication, without long-term current use of insulin E11.9 [place] [address] [address] Aug, Foot pain, right M79.671 [place] [address] [address] Aug, Foot pain, right M79.671 ; Controlled type 2 diabetes mellitus without complication, without long-term current use of insulin E11.9 and Neuropathy G62.9 [place] [address] [place] [address] [id number] [place] [address] July, Uncontrolled type 2 diabetes mellitus without complication, without long-term current use of insulin E11.65 and Hypertension, benign I10 [place] [address] [place] [address] [id number] [place] [address] July, [place] [address] [address] May, Uncontrolled type 2 diabetes mellitus without complication, without long-term current use of insulin E11.65 ; Hypertension, benign I10 and Mixed hyperlipidemia E78.2 [place] [address] [place] [address] [id number] [place] [address] Apr, [facility] [address] [facility] [id number] [place] [address] Apr, Mood disorder F39 ; Uncontrolled type 2 diabetes mellitus without complication, without long-term current use of insulin E11.65 and Hypertension, benign I10 [facility] [address] [facility] [id number] [place] [address] Mar, IMMUNIZATIONS No Known Immunizations SOCIAL HISTORY Never Assessed REASON FOR VISIT Diabetes -Grady KAUR PLAN OF CARE Activity Details Follow Up 4 Weeks Reason:dm2 3mo. chkup VITAL SIGNS Height 66.5 in 2018-01-03 Weight 226.2 lbs 2018-01-03 Temperature 98.2 degrees Fahrenheit 2018-01-03 Heart Rate 120 bpm 2018-01-03 Respiratory Rate 18 2018-01-03 Oximetry 98 % 2018-01-03 BMI 35.96 kg/m2 2018-01-03 Blood pressure systolic 122 mmHg 2018-01-03 Blood pressure diastolic 70 mmHg 2018-01-03 MEDICATIONS Medication Instructions Dosage Frequency Start Date End Date Duration Status Lisinopril-Hydrochlorothiazide 20-25 MG Orally Once a day 1 tablet 24h July, 30 day(s) Active Diclofenac Sodium 75 MG Orally Twice a day 1 tablet with food or milk 12h 24 Dec, 2017 Mar, 30 day(s) Active Neurontin 300 MG Orally Three times a day 1 capsule 8h 20 Aug, 2017 30 day(s) Active GlipiZIDE 10 mg Orally 2 times a day 2 tablets 12h Oct, 30 day(s) Active Simvastatin 20 mg Orally Once a day 1 tablet in the evening 24h 30 Active Aleve 220 MG Orally every 12 hrs 1 tablet with food or milk as needed 12h Active Amitriptyline HCl 50 mg Orally Once a day. voucher 1st fill 1 tablet 30 Active Citalopram Hydrobromide 20 mg Orally Once a day, voucher 1st fill 1 tablet 30 Active Metformin HCl 500 mg Orally Twice a day 2 tablets 12h 12 Apr, 2017 30 day(s) Active RESULTS Name Result Date Reference Range Xray : Shoulder, Right 2 view (IN HOUSE) 2018-01-03 PROCEDURES Procedure Date Ordered Result Body Site X-RAY EXAM OF SHOULDER Jan 03, 2018 INSTRUCTIONS MEDICATIONS ADMINISTERED No Known Medications MEDICAL (GENERAL) HISTORY Type Description Date Medical History hypertension Medical History type II diabetes Medical History degenerative joint disease Medical History high cholestorol Surgical History bilateral tubal ligation (BTL) 1995 Surgical History Pin and Plates in right ankle 1998 Hospitalization History kidney infection 1989
--- OUTSIDE RECORDS SUMMARY | 2018-09-18 03:40 | XMS REPORT ---
Author Author BETINA CROW [facility] Address [address] [place] [address] Care Team Providers Care Snuff Container Inspector Name Role Phone TRISTIN BETINA Unavailable PROBLEMS Type Condition ICD9-CM Code [id number] Code Onset Dates Condition Status SNOMED Code Problem Mixed hyperlipidemia E78.2 Active 916081562 Problem Mood disorder F39 Active 45656864 Problem Hypertension, benign I10 Active 43472286 Problem Uncontrolled type 2 diabetes mellitus without complication, without long- term current use of insulin E11.65 Active 605095502 ALLERGIES No Information ENCOUNTERS Encounter Location Date Diagnosis [place] [address] [address] Aug, [place] [address] [address] July, Uncontrolled type 2 diabetes mellitus without complication, without long-term current use of insulin E11.65 and Hypertension, benign I10 [place] [address] [address] July, [place] [address] [address] May, Uncontrolled type 2 diabetes mellitus without complication, without long-term current use of insulin E11.65 ; Hypertension, benign I10 and Mixed hyperlipidemia E78.2 [facility] [address] [address] Apr, [place] [address] [address] Apr, Mood disorder F39 ; Uncontrolled type 2 diabetes mellitus without complication, without long-term current use of insulin E11.65 and Hypertension, benign I10 [facility] [address] [place] [address] Mar, IMMUNIZATIONS No Known Immunizations SOCIAL HISTORY Never Assessed REASON FOR VISIT quit taking all her meds 18 months ago. was on HTN meds, diabetic meds, and chol esterol meds. zeinab noyola was scheduled with vinay leon on apr 24, 2017 at 092 0 PLAN OF CARE VITAL SIGNS Height 66.5 in 2017-03-19 Weight 220.8 lbs 2017-03-19 Temperature 98.5 degrees Fahrenheit 2017-03-19 Heart Rate 74 bpm 2017-03-19 Respiratory Rate 20 2017-03-19 BMI 35.10 kg/m2 2017-03-19 Blood pressure systolic 146 mmHg 2017-03-19 Blood pressure diastolic 82 mmHg 2017-03-19 MEDICATIONS Medication Instructions Dosage Frequency Start Date End Date Duration Status Aleve 220 MG Orally every 12 hrs 1 tablet with food or milk as needed 12h Active RESULTS No Results PROCEDURES No Known [...]
--- OUTSIDE RECORDS SUMMARY | 2018-09-18 03:40 | XMS REPORT ---
Author Author JAME AGUILAR Organization [facility] Address [address] [place] [address] Care Team Providers Care Lead Shop Operator Name Role Phone JAME AGUILAR Unavailable PROBLEMS Type Condition ICD9-CM Code [id number] Code Onset Dates Condition Status SNOMED Code Problem Uncontrolled type 2 diabetes mellitus without complication, without long- term current use of insulin E11.65 Active 963019084 Problem Other chronic pain G89.29 Active 65645308 Problem Neuropathy G62.9 Active 193586414 Problem Mood disorder F39 Active 50777576 Problem Hypertension, benign I10 Active 32901083 Problem Controlled type 2 diabetes mellitus without complication, without long- term current use of insulin E11.9 Active 413560379 Problem Mixed hyperlipidemia E78.2 Active 370702658 ALLERGIES Substance Reaction Event Type Date Status Lorcet itching Drug Allergy Aug, Active ENCOUNTERS Encounter Location Date Diagnosis [place] [address] [place] [phone] Nov, [place] [address] [place] [id number] [place] [phone] Oct, Other chronic pain G89.29 ; Pain in left ankle and joints of left foot M25.572 ; Pain in right ankle and joints of right foot M25.571 and Controlled type 2 diabetes mellitus without complication, without long-term current use of insulin E11.9 [facility] [address], [place] [address] Aug, Foot pain, right M79.671 [facility] [address] [place] [id number] [place] [address] Aug, Foot pain, right M79.671 ; Controlled type 2 diabetes mellitus without complication, without long-term current use of insulin E11.9 and Neuropathy G62.9 [place] [address], [place] [address] July, Uncontrolled type 2 diabetes mellitus without complication, without long-term current use of insulin E11.65 and Hypertension, benign I10 [facility] [address], [place] [address] July, [facility] [address] [place] [id number] [place] [phone] May, Uncontrolled type 2 diabetes mellitus without complication, without long-term current use of insulin E11.65 ; Hypertension, benign I10 and Mixed hyperlipidemia E78.2 [place] [address] [place] [id number] [place] [phone] Apr, [place] [address] [place] [id number] [place] [phone] Apr, Mood disorder F39 ; Uncontrolled type 2 diabetes mellitus without complication, without long-term current use of insulin E11.65 and Hypertension, benign I10 [facility] [address], [place] [address] Mar, IMMUNIZATIONS No Known Immunizations SOCIAL HISTORY Never Assessed REASON FOR VISIT Diabetes, PT comes in today with concerns with her right foot toes burning sensa tion-[place] PLAN OF CARE Activity Details Follow Up 2 Months Reason:dm2 3 mo. k VITAL SIGNS Height 66.5 in 2017-08-30 Weight 224.5 lbs 2017-08-30 Temperature 98.0 degrees Fahrenheit 2017-08-30 Heart Rate 94 bpm 2017-08-30 Respiratory Rate 18 2017-08-30 BMI 35.69 kg/m2 2017-08-30 Blood pressure systolic 110 mmHg 2017-08-30 Blood pressure diastolic 72 mmHg 2017-08-30 MEDICATIONS Medication Instructions Dosage Frequency Start Date End Date Duration Status Neurontin 100 mg Orally Three times a day 1 capsule 8h 20 Aug, 2017 30 day(s) Active Actos 30 MG Orally Once a day 1 tablet 24h 15 May, 2017 30 day(s) Active Citalopram Hydrobromide 20 mg Orally Once a day, voucher 1st fill 1 tablet 30 Active Aleve 220 MG Orally every 12 hrs 1 tablet with food or milk as needed 12h Active Lisinopril-Hydrochlorothiazide 20-25 MG Orally Once a day 1 tablet 24h July, 30 day(s) Active Metformin HCl 500 mg Orally Twice a day, voucher 1st fill 2 tablets Apr, 30 day(s) Active Amitriptyline HCl 50 mg Orally Once a day. voucher 1st fill 1 tablet 30 Active Simvastatin 20 mg Orally Once a day 1 tablet in the evening 24h Apr, 30 day(s) Active RESULTS No Results PROCEDURES No Known [...]
--- OUTSIDE RECORDS SUMMARY | 2018-09-18 03:40 | XMS REPORT ---
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 Name Role Phone JAME AGUILAR Unavailable PROBLEMS Type Condition ICD9-CM Code [id number] Code Onset Dates Condition Status SNOMED Code Problem Uncontrolled type 2 diabetes mellitus without complication, without long- term current use of insulin E11.65 Active 167937797 Problem Other chronic pain G89.29 Active 86231834 Problem Neuropathy G62.9 Active 409135841 Problem Mood disorder F39 Active 82083873 Problem Hypertension, benign I10 Active 20128766 Problem Controlled type 2 diabetes mellitus without complication, without long- term current use of insulin E11.9 Active 120762883 Problem Mixed hyperlipidemia E78.2 Active 076486340 ALLERGIES Substance Reaction Event Type Date Status Lorcet itching Drug Allergy Nov, Active ENCOUNTERS Encounter Location Date Diagnosis [place] [address] [place] [id number] [place] [address] Dec, [place] [address] [place] [id number] [place] [phone] Dec, [place] [address] [place] [id number] [place] [address] Dec, [facility] [address] [place] [id number] [place] [address] Nov, Hypertension, benign I10 ; Uncontrolled type 2 diabetes mellitus without complication, without long-term current use of insulin E11.65 ; Neuropathy G62.9 ; Tobacco abuse Z72.0 and Tobacco abuse counseling Z71.6 [facility] [address] [place] [id number] [place] [address] Oct, Other chronic pain G89.29 ; Pain in left ankle and joints of left foot M25.572 ; Pain in right ankle and joints of right foot M25.571 and Controlled type 2 diabetes mellitus without complication, without long-term current use of insulin E11.9 [place] [address] [address] Aug, Foot pain, right M79.671 [place] [address] [address] Aug, Foot pain, right M79.671 ; Controlled type 2 diabetes mellitus without complication, without long-term current use of insulin E11.9 and Neuropathy G62.9 [place] [address] [address] July, Uncontrolled type 2 diabetes mellitus without complication, without long-term current use of insulin E11.65 and Hypertension, benign I10 [place] [address] [address] July, [place] [address] [address] May, Uncontrolled type 2 diabetes mellitus without complication, without long-term current use of insulin E11.65 ; Hypertension, benign I10 and Mixed hyperlipidemia E78.2 [place] [address] [place] [id number] [place] [address] Apr, [place] [address] [place] [id number] [place] [address] Apr, Mood disorder F39 ; Uncontrolled type 2 diabetes mellitus without complication, without long-term current use of insulin E11.65 and Hypertension, benign I10 [facility] [address] [place] [id number] [place] [address] Mar, IMMUNIZATIONS No Known Immunizations SOCIAL HISTORY Never Assessed REASON FOR VISIT Diabetes, reports has not been too bad. Lowest fasting BS has been 142 and has n ot been higher than 180 [facility] PLAN OF CARE Activity Details Follow Up 4 Weeks Reason:dm2 uncontrolled. VITAL SIGNS Height 66.5 in 2017-12-06 Weight 229.2 lbs 2017-12-06 Temperature 98.2 degrees Fahrenheit 2017-12-06 Heart Rate 108 bpm 2017-12-06 Respiratory Rate 18 2017-12-06 BMI 36.44 kg/m2 2017-12-06 Blood pressure systolic 110 mmHg 2017-12-06 Blood pressure diastolic 74 mmHg 2017-12-06 MEDICATIONS Medication Instructions Dosage Frequency Start Date End Date Duration Status Lisinopril-Hydrochlorothiazide 20-25 MG Orally Once a day 1 tablet 24h July, 30 day(s) Active Aleve 220 MG Orally every 12 hrs 1 tablet with food or milk as needed 12h Active Chantix 1 MG Orally Twice a day 1 tablet 12h 26 Nov, 2017 May, 30 day(s) Active Neurontin 300 MG Orally Three times a day 1 capsule 8h 20 Aug, 2017 30 day(s) Active GlipiZIDE 10 mg Orally 2 times a day 2 tablets 12h 22 Oct, 2017 30 day(s) Active Metformin HCl 500 mg Orally Twice a day 2 tablets 12h 12 Apr, 2017 30 day(s) Active Amitriptyline HCl 50 mg Orally Once a day. voucher 1st fill 1 tablet 30 Active Citalopram Hydrobromide 20 mg Orally Once a day, voucher 1st fill 1 tablet 30 Active Simvastatin 20 mg Orally Once a day 1 tablet in the evening 24h 30 Active RESULTS No Results PROCEDURES No [...]
--- OUTSIDE RECORDS SUMMARY | 2018-09-18 03:40 | XMS REPORT ---
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 Name Role Phone JAME AGUILAR Unavailable PROBLEMS Type Condition ICD9-CM Code [id number] Code Onset Dates Condition Status SNOMED Code Problem Uncontrolled type 2 diabetes mellitus without complication, without long- term current use of insulin E11.65 Active 354449086 Problem Other chronic pain G89.29 Active 39768622 Problem Neuropathy G62.9 Active 241098362 Problem Mood disorder F39 Active 48528802 Problem Hypertension, benign I10 Active 39846562 Problem Controlled type 2 diabetes mellitus without complication, without long- term current use of insulin E11.9 Active 505745741 Problem Mixed hyperlipidemia E78.2 Active 267224979 ALLERGIES No Information ENCOUNTERS Encounter Location Date Diagnosis [place] [address] [place] [id number] [place] [address] Nov, [place] [address] [place] [id number] [place] [address] Oct, Other chronic pain G89.29 ; Pain in left ankle and joints of left foot M25.572 ; Pain in right ankle and joints of right foot M25.571 and Controlled type 2 diabetes mellitus without complication, without long-term current use of insulin E11.9 [place] [address] [place] [address] Aug, Foot pain, right M79.671 [place] [address] [address] Aug, Foot pain, right M79.671 ; Controlled type 2 diabetes mellitus without complication, without long-term current use of insulin E11.9 and Neuropathy G62.9 [place] [address] [place] [id number] [place] [address] July, Uncontrolled type 2 diabetes mellitus without complication, without long-term current use of insulin E11.65 and Hypertension, benign I10 [facility] [address] [address] July, [facility] [address] [place] [address] May, Uncontrolled type 2 diabetes mellitus without complication, without long-term current use of insulin E11.65 ; Hypertension, benign I10 and Mixed hyperlipidemia E78.2 [facility] [address] [place] [address] Apr, [place] [address] [place] [address] Apr, Mood disorder F39 ; Uncontrolled type 2 diabetes mellitus without complication, without long-term current use of insulin E11.65 and Hypertension, benign I10 [facility] [address] [address] Mar, IMMUNIZATIONS No Known Immunizations SOCIAL HISTORY Never Assessed REASON FOR VISIT Refill request PLAN OF CARE VITAL SIGNS MEDICATIONS Medication Instructions Dosage Frequency Start Date End Date Duration Status Actos 30 MG Orally Once a day 1 tablet 24h May, 30 day(s) Active RESULTS No Results PROCEDURES [...]
--- OUTSIDE RECORDS SUMMARY | 2018-09-18 03:41 | XMS REPORT ---
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 Name Role Phone JAME AGUILAR Unavailable PROBLEMS Type Condition ICD9-CM Code NCG28-SE Code Onset Dates Condition Status SNOMED Code Problem Neuropathy G62.9 Active 412626290 Problem Controlled type 2 diabetes mellitus without complication, without long- term current use of insulin E11.9 Active 596891117 Problem Hypertension, benign I10 Active 45585347 Problem Uncontrolled type 2 diabetes mellitus without complication, without long- term current use of insulin E11.65 Active 982643320 Problem Mixed hyperlipidemia E78.2 Active 075675505 Problem Mood disorder F39 Active 11980457 ALLERGIES No Information ENCOUNTERS Encounter Location Date Diagnosis [place] [address] [place] [id number] [place] [address] Aug, Foot pain, right M79.671 [place] [address] [address] Aug, Foot pain, right M79.671 ; Controlled type 2 diabetes mellitus without complication, without long-term current use of insulin E11.9 and Neuropathy G62.9 [place] [address] [place] [id number] [place] [address] July, Uncontrolled type 2 diabetes mellitus without complication, without long-term current use of insulin E11.65 and Hypertension, benign I10 [place] [address] [place] [id number] [place] [address] July, [place] [address] [address] May, Uncontrolled type 2 diabetes mellitus without complication, without long-term current use of insulin E11.65 ; Hypertension, benign I10 and Mixed hyperlipidemia E78.2 [facility] [address] [facility] [id number] [place] [address] Apr, [facility] [address] [facility] [id number] [address] Apr, Mood disorder F39 ; Uncontrolled type 2 diabetes mellitus without complication, without long-term current use of insulin E11.65 and Hypertension, benign I10 [facility] [address] [facility] [id number], [place] [address] Mar, IMMUNIZATIONS No Known Immunizations SOCIAL HISTORY Never Assessed REASON FOR VISIT lab results PLAN OF CARE VITAL SIGNS MEDICATIONS Medication [...]
--- OUTSIDE RECORDS SUMMARY | 2018-09-18 03:41 | XMS REPORT | Continuity of Care Document ---
Author Organization Unknown Address Unknown Allergies There is no data. Medications There is no data. Problems There is no data. Procedures There is no data. Results Test Result Range LIPID PANEL - 04/24/17 10:33 CHOLESTEROL, TOTAL 234 mg/dL <200 HDL CHOLESTEROL 41 mg/dL >50 TRIGLYCERIDES 199 mg/dL <150 LDL-CHOLESTEROL 157 mg/dL (calc) NRG CHOL/HDLC RATIO 5.7 (calc) <5.0 NON HDL CHOLESTEROL 193 mg/dL (calc) <130 CBC - 04/26/18 14:08 WHITE BLOOD CELL COUNT 11.8 Thousand/uL 3.8-10.8 RED BLOOD CELL COUNT 3.88 Million/uL 3.80-5.10 HEMOGLOBIN 12.9 g/dL 11.7-15.5 HEMATOCRIT 38.4 % 35.0-45.0 MCV 99.0 fL 80.0-100.0 MCH 33.2 pg 27.0-33.0 MCHC 33.6 g/dL 32.0-36.0 RDW 12.9 % 11.0-15.0 PLATELET COUNT 461 Thousand/uL 140-400 MPV 9.8 fL 7.5-12.5 ABSOLUTE NEUTROPHILS 8390 cells/uL 0125-9696 ABSOLUTE LYMPHOCYTES 2738 cells/uL 850-3900 ABSOLUTE MONOCYTES 614 cells/uL 200-950 ABSOLUTE EOSINOPHILS 24 cells/uL 15-500 ABSOLUTE BASOPHILS 35 cells/uL 0-200 NEUTROPHILS 71.1 % NRG LYMPHOCYTES 23.2 % NRG MONOCYTES 5.2 % NRG EOSINOPHILS 0.2 % NRG BASOPHILS 0.3 % NRG Encounters ACCT No. Visit Date/Time Discharge Status Pt. Type Provider Facility Loc./Unit Complaint [id number] 08/30/2018 13:40:00 08/30/2018 23:59:59 CLS Outpatient JAME AGUILAR APRN [facility] [id number] 04/26/2018 13:20:00 Document Registration [id number] 04/24/2017 09:20:00 Document Registration
[2018-09-18] MEDS ORDERED: methylPREDNISolone 125 MG (Solu-MEDROL) VIAL IVP ONE (03:45)
[2018-09-18] MEDS ORDERED: ONDANSETRON 4 MG/2 ML (SDV) Z0FRAN IVP ONE (03:45)
[2018-09-18] MEDS ORDERED: RT-ALBUTEROL/IPRATROPIUM 3 ML (DUONEB) VIAL INH ONE (03:45)
[2018-09-18] MEDS ORDERED: EPINEPHrine INJECTION 1 MG/ML AMP IM ONE (03:45)
[2018-09-18] MEDS ORDERED: FAMOTIDINE 20MG/2ML IV (PEPCID) IVP ONE (03:45)
--- NOTE | 2018-09-18 04:20 | NUR ---
PT BREATHING BETTTER. ABLE TO SPEAK CLEARER. HR DECREASED TO 100-110s.
--- NOTE | 2018-09-18 05:30 | NUR ---
VSS. DENIES SOA. RESTING IN BED WATCHING TV. FAMILY AT BEDSIDE.
[2018-09-18] MEDS ORDERED: KETOROLAC 30 MG/ML VIAL IVP STA (06:36)
--- NOTE | 2018-09-18 06:40 | NUR ---
RATING PAIN OF STING SITE TO BACK OF NECK 10/20. DR. ALBA NOTIFIED. NEW ORDERS RECEIVED.
--- NOTE | 2018-09-18 06:45 | ED General ---
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 STATES GOT UP TO GO TO THE BATHROOM AND WHEN LAID BACK DOWN ON PILLOW STUNG BY WASP ON BACK OF NECK. TOOK BENADRYL 50MG PO, DID VOMIT ASSISTED LIVING MANAGER. C/O SOA AND PAIN TO STING SITE. Nursing Sepsis Screen: No Definite Risk Source of Information: Patient, Family Exam Limitations: No Limitations (MAYI APODACA MD) History of Present Illness Date Seen by Provider: Sep 18, 2018 Time Seen by Provider: 03:35 Initial Comments This 43-year-old woman presents to the emergency room with difficulty breathing after being stung by a wasp on the back of the neck about an hour prior to arrival. She took Benadryl 50 mg orally. She has had bad reactions to wasps in the past. She is notably tachycardic. She vomited at home. She has decreased air movement and wheezing. Her voice is raspy. (MAYI APODACA MD) Allergies and Home Medications Allergies Uncoded Allergies: wasp (Allergy, Severe, Anaphylaxis, 09/18/18) Patient Home Medication List Home Medication List Reviewed: Yes (MAYI APODACA MD) Review of Systems Review of Systems Constitutional: no symptoms reported EENTM: see HPI Respiratory: see HPI Cardiovascular: see HPI Gastrointestinal: see HPI Genitourinary: no symptoms reported : No Musculoskeletal: no symptoms reported Skin: no symptoms reported Psychiatric/Neurological: No Symptoms Reported Hematologic/Lymphatic: No Symptoms Reported Immunological/Allergic: see HPI (MAYI APODACA MD) Past Gthnhnw-Qlcvzv-Jztion Hx Past Med/Social Hx: Reviewed Nursing Past Med/Soc Hx (MAYI APODACA MD) Patient Social History Alcohol Use: Denies Use Recreational Drug Use: No Smoking Status: Current Everyday Smoker Recent Foreign Travel: No Contact w/Someone Who Travel: No Recent Infectious Disease Expo: No Recent Hopitalizations: No (MAYI APODACA MD) Seasonal Allergies Seasonal Allergies: No (MAYI APODACA MD) Past Medical History Surgeries: Yes Orthopedic, Tubal Ligation Respiratory: No Cardiac: Yes High Cholesterol, Hypertension Neurological: No Genitourinary: No Gastrointestinal: No Musculoskeletal: No Endocrine: Yes Diabetes, Non-Insulin dep HEENT: No Cancer: No Psychosocial: No Integumentary: No Blood Disorders: No (MAYI APODACA MD) Physical Exam Vital Signs Vital Signs - First Documented 09/18/18 09/18/18 03:36 03:49 Temp 98.2 Pulse 128 Resp 20 B/P (MAP) 101/66 (78) Pulse Ox 94 O2 Delivery Room Air (KHALIF ALBA MD) Vital Signs Capillary Refill : Less Than 3 Seconds (MAYI APODACA MD) Height, Weight, BMI Height: 5'6.00" Weight: 221lbs. oz. 100.494453ji; BMI Method:Stated General Appearance: No Apparent Distress, Mild Distress HEENT: PERRL/EOMI, Normal ENT Inspection, Pharynx Normal Neck: Other (swelling and pain to the lower posterior neck) Respiratory: No Accessory Muscle Use, No Respiratory Distress, Decreased Breath Sounds, Wheezing Cardiovascular: No Edema, No Murmur, Tachycardia Gastrointestinal: Normal Bowel Sounds, Non Tender, Soft Extremity: Normal Inspection, No Pedal Edema Neurologic/Psychiatric: Alert, Oriented x3, No Motor/Sensory Deficits, Normal Mood/Affect, systems specialist II-XII Norm as Tested Skin: Normal Color, Warm/Dry (MAYI APODACA MD) Progress/Results/Core Measures Suspected Sepsis Recent Fever Within 48 Hours: No Infection Criteria Present: None New/Unexplained Altered Menta: No Sepsis Screen: No Definite Risk SIRS Temperature:98.2 Pulse: 128 Respiratory Rate: 20 Blood Pressure 101 /66 Mean: 78 (MAYI APODACA MD) Results/Orders My Orders Orders - KHALIF ALBA MD Ketorolac Injection (Toradol Injection) (09/18/18 06:36) Decadron 10 Mg Ivp (09/18/18 07:30) (KHALIF ALBA MD) Medications Given in ED Current Medications Medications Dose Ordered Sig/Zachary Route Start Time Stop Time Status Last Admin Dose Admin Albuterol/ Ipratropium 3 ml ONCE ONCE INH 09/18/18 03:45 09/18/18 03:46 DC 09/18/18 03:49 3 ML Epinephrine HCl 0.3 mg ONCE ONCE IM 09/18/18 03:45 09/18/18 03:46 DC 09/18/18 03:49 0.3 MG Famotidine 20 mg ONCE ONCE IVP 09/18/18 03:45 09/18/18 03:46 DC 09/18/18 03:55 20 MG Methylprednisolone Sodium Succinate 125 mg ONCE ONCE IVP 09/18/18 03:45 09/18/18 03:46 DC 09/18/18 03:55 125 MG Ondansetron HCl 4 mg ONCE ONCE IVP 09/18/18 03:45 09/18/18 03:46 DC 09/18/18 03:55 4 MG Sodium Chloride 1,000 ml @ 0 mls/hr Q0M ONCE IV 09/18/18 03:40 09/18/18 03:43 DC 09/18/18 03:56 999 MLS/HR (KHALIF ALBA MD) Vital Signs/I&O 09/18/18 09/18/18 03:36 03:49 Temp 98.2 Pulse 128 Resp 20 B/P (MAP) 101/66 (78) Pulse Ox 94 O2 Delivery Room Air (KHALIF ALBA MD) Vital Signs/I&O Capillary Refill : Less Than 3 Seconds (MAYI APODACA MD) Blood Pressure Mean: 78 Progress Note : Time: 06:43 Progress Note Patient is stable at this time. She was treated with Zofran, Pepcid, Solu- Medrol, epinephrine, DuoNeb and IV fluids for anaphylaxis. She had improvement in symptoms. Care of this patient is being transferred to Dr. Alba at this time to complete her care. (MAYI APODACA MD) Progress Note : Progress Note 0636: I have seen and evaluated the patient. She is overall much improved. She does have some pain at the sting site. Toradol 30 mg IV ordered. Monitor patient. 0736: She is doing much better. Decadron 10 mg IV ordered. I have discussed the case with Dr. Serrano. She will assist and sending prescription to the [facility] for EpiPen which the patient will picker tender. Discharged home with return precautions. Patient verbalize understanding instruc tions and agreement with plan. (KHALIF ALBA MD) Departure Impression Primary Impression: Anaphylaxis Qualified Codes: T78.2XXA - Anaphylactic shock, unspecified, initial encounter Disposition: 01 HOME, SELF-CARE Condition: Improved Departure-Patient Inst. Referrals: [facility]/ (PCP) Primary Care Physician JAME AGUILAR (Family) Primary Care Physician Patient Instructions: Anaphylaxis Add. Discharge Instructions: All discharge instructions reviewed with patient and/or family. Voiced understanding. You may take Benadryl 25 mg every 6 hours as needed for itching or swelling. You may take Pepcid or the generic famotidine 20 mg twice daily for the next 3 days and then daily thereafter as needed for stomach upset. It also helps reduce allergic reaction and that's what the three-day dosing is for. Go to the [facility] pharmacy to picker tender your EpiPen. This should be available in a few hours. Return for breathing problems, weakness, vomiting, stomach upset, hives or other concerns as needed. You may take ibuprofen 800 mg every 8 hours as needed for pain. You may also take Tylenol/acetaminophen 1000 mg every 8 hours as needed for pain. Work/School Note: Work Release Form Date Seen in the Emergency Department: Sep 18, 2018 Return to Work: Sep 19, 2018 Restrictions: No Restrictions Copy Copies To 1: BETINA CROW JOSHUA T MD Sep 18, 2018 06:45 KHALIF ALBA MD Sep 18, 2018 07:39
[2018-09-18] MEDS ORDERED: DEXAMETHASONE 10 MG/ML (DECADRON) 1 ML VIAL IV ONE (07:30)
[2018-09-18 07:47] VITALS: BP 106/69
== END 2018-09-18 07:47 | disposition home or self-care (01) ==
LOC: ER 03:35
DX: T78.2XXA Anaphylactic shock, unspecified, initial encounter (principal); I10 Essential (primary) hypertension; E78.00 Pure hypercholesterolemia, unspecified; E11.9 Type 2 diabetes mellitus without complications; F17.200 Nicotine dependence, unspecified, uncomplicated; Z98.51 Tubal ligation status; Z91.030 Bee allergy status
CPT/HCPCS: 94640; 96361; 96372; 96374; 96375